=== PATIENT | male | born 1945 | race Caucasian/White ===

== ENCOUNTER 2016-07-17 17:00 | Inpatient (IN) | payer MEDICARE, OTHER ==
[2016-07-17] MEDS ORDERED: FLOMAX0.4 M1 PO (17:42)
[2016-07-17] MEDS ORDERED: DEXAMETHASONE4 M1 PO (17:43)
[2016-07-17] MEDS ORDERED: TENORMIN25 M1 PO (17:43)
[2016-07-17] MEDS ORDERED: PRINIVIL5 M1 PO (17:43)
[2016-07-17] MEDS ORDERED: LIPITOR20 M1 PO (17:44)
[2016-07-17] MEDS ORDERED: FLONASE ALLERG9.9 ML (17:44)
[2016-07-17] MEDS ORDERED: MULTIVITAMINS1 EAC6 PO (17:47)
[2016-07-17] MEDS ORDERED: NORCO 5-325 TA1 EACH PO (17:49)
[2016-07-17] MEDS ORDERED: ALEVE220 M4 PO (17:50)
[2016-07-17 18:42] LABS: HCT-HEMATOCRIT 31.2 % (36.0-53.5); HGB-HEMOGLOBIN 10.1 gm/dl (13.5-17.0); MCH (MEAN CORPUSCULAR HGB) 30.6 pg (28.0-32.0); MCHC MEAN CORPUSCULAR HGB CONC 32.4 % (32.0-36.0); MCV (MEAN CELL VOLUME) 94.5 fl (82.0-96.0); MEAN PLATELET VOLUME 8.8 cmc (9.4-12.4); NEUTROPHIL-AUTOMATED 38.3 tho/cmm (1.6-8.0); RED CELL DISTRIBUTION WIDTH 16.7 % (12.4-16.4)
[2016-07-17 18:44] LABS: BASO % 0.3 % (0-2); BASO ABSOLUTE COUNT 0.1 tho/cmm (0.0-0.2); IMMATURE GRANULOCYTES ABSOLUTE 2.65 tho/cmm (0-0.03); IMMATURE GRANULOCYTES PERCENT 6.4 % (0-0.3); LYMPH % 0.6 % (20-45); LYMPH ABSOLUTE COUNT 0.2 tho/cmm (0.8-4.5); MONO % 0.3 % (0-12); MONOCYTE ABSOLUTE COUNT 0.1 tho/cmm (0.0-1.2); NEUTROPHIL ABSOLUTE COUNT 38.3 tho/cmm (1.6-8.0); NEUTROPHILS % 92.4 % (40-80)
[2016-07-17 18:57] LABS: ALB/GLOB RATIO 0.8 (0.8-2.0); ALBUMIN 2.8 g/dl (3.5-5.0); ALKALINE PHOSPHATASE 62 U/L (33-138); ALT/SGPT 19 U/L (12-78); ANION GAP 12 mmol/L (0-20); AST/SGOT 18 U/L (10-40); BILIRUBIN,TOTAL 0.6 mg/dl (0.0-1.5); BLOOD UREA NITROGEN 32 mg/dl (6-24); CALCIUM 7.9 mg/dl (8.5-10.5); CARBON DIOXIDE-VENOUS 27 mmol/L (22-32); CHLORIDE 103 mmol/l (96-110); CREATININE 1.11 mg/dl (0.60-1.30); GLUCOSE 133 mg/dL (70-110); POTASSIUM 4.4 mmol/L (3.7-5.1); SODIUM 138 mmol/L (135-145); eGFR VALUE FOR BLACK 76 mL/Min
[2016-07-17 19:08] LABS: PLATELET COUNT 309 tho/cmm (150-450); WHITE BLOOD COUNT 41.8 tho/cmm (4.0-10.0)
[2016-07-18 05:25] LABS: HCT-HEMATOCRIT 28.1 % (36.0-53.5); MCH (MEAN CORPUSCULAR HGB) 30.3 pg (28.0-32.0); MCV (MEAN CELL VOLUME) 94.6 fl (82.0-96.0); MEAN PLATELET VOLUME 9.1 cmc (9.4-12.4); PLATELET COUNT 272 tho/cmm (150-450); RED BLOOD COUNT 2.97 mil/cmm (4.40-5.70); RED CELL DISTRIBUTION WIDTH 16.8 % (12.4-16.4); WHITE BLOOD COUNT 33.1 tho/cmm (4.0-10.0)
[2016-07-18 05:53] LABS: ALB/GLOB RATIO 0.7 (0.8-2.0); ALBUMIN 2.3 g/dl (3.5-5.0); ALKALINE PHOSPHATASE 67 U/L (33-138); ALT/SGPT 17 U/L (12-78); ANION GAP 9 mmol/L (0-20); AST/SGOT 14 U/L (10-40); BILIRUBIN,TOTAL 0.5 mg/dl (0.0-1.5); BLOOD UREA NITROGEN 30 mg/dl (6-24); CALCIUM 7.8 mg/dl (8.5-10.5); CARBON DIOXIDE-VENOUS 28 mmol/L (22-32); CHLORIDE 106 mmol/l (96-110); CREATININE 1.02 mg/dl (0.60-1.30); GLUCOSE 127 mg/dL (70-110); POTASSIUM 4.2 mmol/L (3.7-5.1); SODIUM 139 mmol/L (135-145); eGFR VALUE FOR BLACK 85 mL/Min
[2016-07-18 10:52] LABS: BAND % 15 % (0-20)
[2016-07-18 10:53] LABS: WBC MORPHOLOGY VACUOLES
[2016-07-18 13:24] LABS: URINE BILIRUBIN NEGATIVE (NEG); URINE BLOOD SMALL (NEG); URINE GLUCOSE (UA) NEGATIVE (NEG); URINE KETONE NEGATIVE (NEG); URINE LEUKOCYTE ESTERASE POSITIVE (NEG); URINE NITRITE NEGATIVE (NEG); URINE PROTEIN MODERATE (NEG); URINE SPECIFIC GRAVITY 1.015 (1.003-1.030)
[2016-07-18 13:25] LABS: URINE APPEARANCE CLEAR; URINE COLOR YELLOW
[2016-07-18 13:30] LABS: URINE EPITHELIAL CELLS 0 /[HPF] (0-10); URINE RBC RARE /[HPF] (0-5); URINE WBC 15-18 /[HPF] (0-5)
[2016-07-19 05:17] LABS: HCT-HEMATOCRIT 27.4 % (36.0-53.5); HGB-HEMOGLOBIN 8.8 gm/dl (13.5-17.0); MCH (MEAN CORPUSCULAR HGB) 30.2 pg (28.0-32.0); MCHC MEAN CORPUSCULAR HGB CONC 32.1 % (32.0-36.0); MCV (MEAN CELL VOLUME) 94.2 fl (82.0-96.0); MEAN PLATELET VOLUME 9.3 cmc (9.4-12.4); PLATELET COUNT 221 tho/cmm (150-450); RED BLOOD COUNT 2.91 mil/cmm (4.40-5.70); RED CELL DISTRIBUTION WIDTH 16.9 % (12.4-16.4); WHITE BLOOD COUNT 21.3 tho/cmm (4.0-10.0)
[2016-07-19 05:36] LABS: ANION GAP 11 mmol/L (0-20); BLOOD UREA NITROGEN 29 mg/dl (6-24); CALCIUM 7.9 mg/dl (8.5-10.5); CARBON DIOXIDE-VENOUS 26 mmol/L (22-32); CHLORIDE 105 mmol/l (96-110); CREATININE 0.93 mg/dl (0.60-1.30); GLUCOSE 102 mg/dL (70-110); POTASSIUM 3.9 mmol/L (3.7-5.1); SODIUM 138 mmol/L (135-145); eGFR VALUE FOR BLACK >90 mL/Min
[2016-07-19 05:44] LABS: C-REACTIVE PROTEIN 21.2 mg/dl (0-0.9); CREATINE PHOSPHOKINASE (CPK) 68 U/L (35-232)
[2016-07-19 08:50] LABS: BAND % 9 % (0-20); BAND ABSOLUTE COUNT 1.9 tho/cmm (0-2.0)
[2016-07-20 04:41] LABS: HCT-HEMATOCRIT 26.4 % (36.0-53.5); HGB-HEMOGLOBIN 8.4 gm/dl (13.5-17.0); MCH (MEAN CORPUSCULAR HGB) 29.9 pg (28.0-32.0); MCHC MEAN CORPUSCULAR HGB CONC 31.8 % (32.0-36.0); MEAN PLATELET VOLUME 9.5 cmc (9.4-12.4); NEUTROPHIL-AUTOMATED 5.8 tho/cmm (1.6-8.0); PLATELET COUNT 224 tho/cmm (150-450); RED BLOOD COUNT 2.81 mil/cmm (4.40-5.70)
[2016-07-20 04:46] LABS: BASO % 3.2 % (0-2); BASO ABSOLUTE COUNT 0.2 tho/cmm (0.0-0.2); EOS % 0.7 % (0-7); EOSINOPHIL ABSOLUTE COUNT 0.1 tho/cmm (0.0-0.7); IMMATURE GRANULOCYTES ABSOLUTE 0.81 tho/cmm (0-0.03); IMMATURE GRANULOCYTES PERCENT 11.1 % (0-0.3); LYMPH % 4.5 % (20-45); LYMPH ABSOLUTE COUNT 0.3 tho/cmm (0.8-4.5); MONOCYTE ABSOLUTE COUNT 0.1 tho/cmm (0.0-1.2); NEUTROPHIL ABSOLUTE COUNT 5.8 tho/cmm (1.6-8.0); NEUTROPHILS % 79.5 % (40-80); WHITE BLOOD COUNT 7.3 tho/cmm (4.0-10.0)
[2016-07-20 05:36] LABS: ANION GAP 9 mmol/L (0-20); BLOOD UREA NITROGEN 24 mg/dl (6-24); C-REACTIVE PROTEIN 18.4 mg/dl (0-0.9); CALCIUM 7.9 mg/dl (8.5-10.5); CARBON DIOXIDE-VENOUS 28 mmol/L (22-32); CHLORIDE 104 mmol/l (96-110); CREATININE 0.86 mg/dl (0.60-1.30); GLUCOSE 130 mg/dL (70-110); POTASSIUM 3.9 mmol/L (3.7-5.1); SODIUM 137 mmol/L (135-145); eGFR VALUE FOR BLACK >90 mL/Min
[2016-07-21 03:43] LABS: BASO % 0.3 % (0-2); EOS % 0.6 % (0-7); HCT-HEMATOCRIT 26.5 % (36.0-53.5); HGB-HEMOGLOBIN 8.5 gm/dl (13.5-17.0); IMMATURE GRANULOCYTES ABSOLUTE 0.08 tho/cmm (0-0.03); IMMATURE GRANULOCYTES PERCENT 1.1 % (0-0.3); LYMPH % 3.7 % (20-45); LYMPH ABSOLUTE COUNT 0.3 tho/cmm (0.8-4.5); MCH (MEAN CORPUSCULAR HGB) 29.9 pg (28.0-32.0); MCHC MEAN CORPUSCULAR HGB CONC 32.1 % (32.0-36.0); MCV (MEAN CELL VOLUME) 93.3 fl (82.0-96.0); MEAN PLATELET VOLUME 9.3 cmc (9.4-12.4); MONO % 5.5 % (0-12); MONOCYTE ABSOLUTE COUNT 0.4 tho/cmm (0.0-1.2); NEUTROPHIL ABSOLUTE COUNT 6.4 tho/cmm (1.6-8.0); NEUTROPHIL-AUTOMATED 6.4 tho/cmm (1.6-8.0); NEUTROPHILS % 88.8 % (40-80); PLATELET COUNT 243 tho/cmm (150-450); RED BLOOD COUNT 2.84 mil/cmm (4.40-5.70); RED CELL DISTRIBUTION WIDTH 16.7 % (12.4-16.4); WHITE BLOOD COUNT 7.2 tho/cmm (4.0-10.0)
[2016-07-21 04:11] LABS: ANION GAP 11 mmol/L (0-20); BLOOD UREA NITROGEN 17 mg/dl (6-24); C-REACTIVE PROTEIN 15.5 mg/dl (0-0.9); CALCIUM 7.8 mg/dl (8.5-10.5); CARBON DIOXIDE-VENOUS 26 mmol/L (22-32); CHLORIDE 103 mmol/l (96-110); CREATININE 0.79 mg/dl (0.60-1.30); GLUCOSE 114 mg/dL (70-110); POTASSIUM 3.8 mmol/L (3.7-5.1); SODIUM 136 mmol/L (135-145); eGFR VALUE FOR BLACK >90 mL/Min
[2016-07-21 07:23] LABS: WBC MORPHOLOGY DOHLE BODIES
[2016-07-22 05:57] LABS: HCT-HEMATOCRIT 30.1 % (36.0-53.5); HGB-HEMOGLOBIN 9.6 gm/dl (13.5-17.0); MCH (MEAN CORPUSCULAR HGB) 29.6 pg (28.0-32.0); MCHC MEAN CORPUSCULAR HGB CONC 31.9 % (32.0-36.0); MCV (MEAN CELL VOLUME) 92.9 fl (82.0-96.0); MEAN PLATELET VOLUME 9.3 cmc (9.4-12.4); NEUTROPHIL-AUTOMATED 10.9 tho/cmm (1.6-8.0); PLATELET COUNT 286 tho/cmm (150-450); RED BLOOD COUNT 3.24 mil/cmm (4.40-5.70); RED CELL DISTRIBUTION WIDTH 16.9 % (12.4-16.4)
[2016-07-22 06:06] LABS: WHITE BLOOD COUNT 12.9 tho/cmm (4.0-10.0)
[2016-07-22 06:16] LABS: ANION GAP 10 mmol/L (0-20); BLOOD UREA NITROGEN 15 mg/dl (6-24); C-REACTIVE PROTEIN 16.1 mg/dl (0-0.9); CALCIUM 8.3 mg/dl (8.5-10.5); CARBON DIOXIDE-VENOUS 27 mmol/L (22-32); CHLORIDE 106 mmol/l (96-110); CREATININE 0.85 mg/dl (0.60-1.30); GLUCOSE 107 mg/dL (70-110); POTASSIUM 3.7 mmol/L (3.7-5.1); SODIUM 139 mmol/L (135-145); eGFR VALUE FOR BLACK >90 mL/Min
[2016-07-22 06:22] LABS: CREATINE PHOSPHOKINASE (CPK) 34 U/L (35-232)
[2016-07-22 07:34] LABS: BAND % 19 % (0-20); BAND ABSOLUTE COUNT 2.5 tho/cmm (0-2.0); EOSINOPHIL % 1 % (0-7)
[2016-07-23 06:00] LABS: HCT-HEMATOCRIT 27.7 % (36.0-53.5); HGB-HEMOGLOBIN 8.8 gm/dl (13.5-17.0); MCH (MEAN CORPUSCULAR HGB) 29.8 pg (28.0-32.0); MCHC MEAN CORPUSCULAR HGB CONC 31.8 % (32.0-36.0); MCV (MEAN CELL VOLUME) 93.9 fl (82.0-96.0); MEAN PLATELET VOLUME 9.4 cmc (9.4-12.4); NEUTROPHIL-AUTOMATED 11.2 tho/cmm (1.6-8.0); PLATELET COUNT 286 tho/cmm (150-450); RED BLOOD COUNT 2.95 mil/cmm (4.40-5.70); WHITE BLOOD COUNT 13.2 tho/cmm (4.0-10.0)
[2016-07-23 06:03] LABS: BASO % 0.2 % (0-2); EOS % 0.4 % (0-7); EOSINOPHIL ABSOLUTE COUNT 0.1 tho/cmm (0.0-0.7); IMMATURE GRANULOCYTES ABSOLUTE 0.91 tho/cmm (0-0.03); IMMATURE GRANULOCYTES PERCENT 6.9 % (0-0.3); LYMPH % 3.6 % (20-45); LYMPH ABSOLUTE COUNT 0.5 tho/cmm (0.8-4.5); MONO % 4.2 % (0-12); MONOCYTE ABSOLUTE COUNT 0.6 tho/cmm (0.0-1.2); NEUTROPHIL ABSOLUTE COUNT 11.2 tho/cmm (1.6-8.0); NEUTROPHILS % 84.7 % (40-80)
[2016-07-23 06:16] LABS: ANION GAP 13 mmol/L (0-20); BLOOD UREA NITROGEN 16 mg/dl (6-24); CALCIUM 8.1 mg/dl (8.5-10.5); CARBON DIOXIDE-VENOUS 29 mmol/L (22-32); CHLORIDE 104 mmol/l (96-110); CREATININE 0.87 mg/dl (0.60-1.30); GLUCOSE 108 mg/dL (70-110); SODIUM 142 mmol/L (135-145); eGFR VALUE FOR BLACK >90 mL/Min
[2016-07-23] MEDS ORDERED: CLARITIN10 M8 PO (15:23)
[2016-07-23] MEDS ORDERED: CEFTRIAXON2000 MG/VI IV (15:24)
[2016-07-23] MEDS ORDERED: ACIDOPHILUS1 EAC3 PO (15:25)
[2016-07-23] MEDS ORDERED: MILK OF MAGNESIA PO (15:26)
[2016-07-23] MEDS ORDERED: SENNA CONCENTR8.6 M1 PO (15:27)
[2016-07-23] MEDS ORDERED: POLYETHYLENE G255 G1 PO (15:27)
[2016-07-23] MEDS ORDERED: ANTIFUNGAL30 G3 TP (15:28)
[2016-07-23] MEDS ORDERED: LASIX20 M1 PO (15:29)
[2016-07-23] MEDS ORDERED: POTASSIUM CHLO10 ME2 PO (15:30)
[2016-07-23] MEDS ORDERED: NORCO 5-325 TA1 EACH PO (15:30)
[2016-08-19] MEDS ORDERED: ASPIRIN81 M1 PO (09:39)
== END 2016-07-23 16:55 | DRG 872 ==
LOC: 5WF 17:00
PROVIDERS: Family Medicine; Internal Medicine Infectious Disease; ADMIT Internal Medicine Hematology & Oncology
PROC: 3E0F7GC Introduction of Other Therapeutic Substance into Respiratory Tract, Via Natural or Artificial Opening (ICD-10-PCS; principal; 2016-07-18)
DX: A40.1 Sepsis due to streptococcus, group B (principal); I95.9 Hypotension, unspecified; L03.313 Cellulitis of chest wall; E88.09 Other disorders of plasma-protein metabolism, not elsewhere classified; D64.81 Anemia due to antineoplastic chemotherapy; C61 Malignant neoplasm of prostate; B35.3 Tinea pedis; B35.4 Tinea corporis; D72.829 Elevated white blood cell count, unspecified; E11.9 Type 2 diabetes mellitus without complications; I25.10 Atherosclerotic heart disease of native coronary artery without angina pectoris; K59.00 Constipation, unspecified; M60.9 Myositis, unspecified; R60.9 Edema, unspecified; R79.82 Elevated C-reactive protein (CRP)
CPT/HCPCS: G8978-GP-CJ; G8979-GP-CI; J0696; J0878; J1650; J1940; J2185; J7040; J7050

== ENCOUNTER 2016-07-29 17:21 | Inpatient (IN) | payer MEDICARE, OTHER ==
[~2016-07-29 17:21] MED LIST: ACIDOPHILUS1 EAC3 PO; ALEVE220 M4 PO; ANTIFUNGAL30 G3 TP; CEFTRIAXON2000 MG/VI IV; CLARITIN10 M8 PO; DEXAMETHASONE4 M1 PO; FLOMAX0.4 M1 PO; FLONASE ALLERG9.9 ML; LASIX20 M1 PO; LIPITOR20 M1 PO; MILK OF MAGNESIA PO; MULTIVITAMINS1 EAC6 PO; NORCO 5-325 TA1 EACH PO; POLYETHYLENE G255 G1 PO; POTASSIUM CHLO10 ME2 PO; PRINIVIL5 M1 PO; SENNA CONCENTR8.6 M1 PO; TENORMIN25 M1 PO
[2016-07-30 02:48] LABS: URINE BILIRUBIN NEGATIVE (NEG); URINE BLOOD NEGATIVE (NEG); URINE GLUCOSE (UA) NEGATIVE (NEG); URINE KETONE NEGATIVE (NEG); URINE LEUKOCYTE ESTERASE NEGATIVE (NEG); URINE NITRITE NEGATIVE (NEG); URINE PROTEIN NEGATIVE (NEG); URINE SPECIFIC GRAVITY 1.005 (1.003-1.030)
[2016-07-30 03:04] LABS: URINE APPEARANCE CLEAR; URINE COLOR PALE YELLOW
[2016-07-30 05:26] LABS: BASO % 0.5 % (0-2); EOS % 0.5 % (0-7); HCT-HEMATOCRIT 27.1 % (36.0-53.5); HGB-HEMOGLOBIN 8.4 gm/dl (13.5-17.0); IMMATURE GRANULOCYTES ABSOLUTE 0.05 tho/cmm (0-0.03); IMMATURE GRANULOCYTES PERCENT 0.6 % (0-0.3); LYMPH % 5.7 % (20-45); LYMPH ABSOLUTE COUNT 0.5 tho/cmm (0.8-4.5); MCH (MEAN CORPUSCULAR HGB) 29.1 pg (28.0-32.0); MCV (MEAN CELL VOLUME) 93.8 fl (82.0-96.0); MEAN PLATELET VOLUME 8.8 cmc (9.4-12.4); MONO % 10.7 % (0-12); MONOCYTE ABSOLUTE COUNT 0.9 tho/cmm (0.0-1.2); NEUTROPHIL ABSOLUTE COUNT 7.1 tho/cmm (1.6-8.0); NEUTROPHIL-AUTOMATED 7.1 tho/cmm (1.6-8.0); PLATELET COUNT 359 tho/cmm (150-450); RED BLOOD COUNT 2.89 mil/cmm (4.40-5.70); WHITE BLOOD COUNT 8.7 tho/cmm (4.0-10.0)
[2016-07-30 05:50] LABS: ALB/GLOB RATIO 0.7 (0.8-2.0); ALBUMIN 2.2 g/dl (3.5-5.0); ALKALINE PHOSPHATASE 56 U/L (33-138); ALT/SGPT 20 U/L (12-78); ANION GAP 10 mmol/L (0-20); AST/SGOT 16 U/L (10-40); BILIRUBIN,TOTAL 0.2 mg/dl (0.0-1.5); BLOOD UREA NITROGEN 12 mg/dl (6-24); CALCIUM 8.2 mg/dl (8.5-10.5); CARBON DIOXIDE-VENOUS 30 mmol/L (22-32); CHLORIDE 104 mmol/l (96-110); CREATININE 0.87 mg/dl (0.60-1.30); GLUCOSE 121 mg/dL (70-110); POTASSIUM 4.2 mmol/L (3.7-5.1); SODIUM 140 mmol/L (135-145); eGFR VALUE FOR BLACK >90 mL/Min
[2016-07-30 10:22] LABS: INR 1.2 INR (0.9-1.1); PROTHROMBIN TIME 13.5 SECONDS (9.0-13.6)
[2016-07-31 03:04] LABS: BASO % 0.1 % (0-2); HCT-HEMATOCRIT 28.6 % (36.0-53.5); HGB-HEMOGLOBIN 8.9 gm/dl (13.5-17.0); IMMATURE GRANULOCYTES ABSOLUTE 0.05 tho/cmm (0-0.03); IMMATURE GRANULOCYTES PERCENT 0.4 % (0-0.3); LYMPH % 2.6 % (20-45); LYMPH ABSOLUTE COUNT 0.4 tho/cmm (0.8-4.5); MCH (MEAN CORPUSCULAR HGB) 29.2 pg (28.0-32.0); MCHC MEAN CORPUSCULAR HGB CONC 31.1 % (32.0-36.0); MCV (MEAN CELL VOLUME) 93.8 fl (82.0-96.0); MEAN PLATELET VOLUME 8.6 cmc (9.4-12.4); MONOCYTE ABSOLUTE COUNT 0.1 tho/cmm (0.0-1.2); NEUTROPHIL ABSOLUTE COUNT 13.1 tho/cmm (1.6-8.0); NEUTROPHIL-AUTOMATED 13.1 tho/cmm (1.6-8.0); NEUTROPHILS % 95.9 % (40-80); PLATELET COUNT 366 tho/cmm (150-450); RED BLOOD COUNT 3.05 mil/cmm (4.40-5.70); RED CELL DISTRIBUTION WIDTH 16.9 % (12.4-16.4)
[2016-07-31 03:14] LABS: ANION GAP 10 mmol/L (0-20); CALCIUM 8.2 mg/dl (8.5-10.5); CARBON DIOXIDE-VENOUS 30 mmol/L (22-32); CHLORIDE 106 mmol/l (96-110); CREATININE 0.87 mg/dl (0.60-1.30); GLUCOSE 150 mg/dL (70-110); POTASSIUM 4.8 mmol/L (3.7-5.1); SODIUM 141 mmol/L (135-145); eGFR VALUE FOR BLACK >90 mL/Min
[2016-07-31 03:28] LABS: WHITE BLOOD COUNT 13.7 tho/cmm (4.0-10.0)
[2016-07-31 04:21] LABS: BLOOD UREA NITROGEN 14 mg/dl (6-24)
[2016-07-31 13:33] LABS: INR 1.2 INR (0.9-1.1); PROTHROMBIN TIME 13.8 SECONDS (9.0-13.6)
[2016-08-01 04:37] LABS: C-REACTIVE PROTEIN 4.2 mg/dl (0-0.9)
[2016-08-02 06:32] LABS: BASO % 0.8 % (0-2); BASO ABSOLUTE COUNT 0.1 tho/cmm (0.0-0.2); EOS % 0.3 % (0-7); HCT-HEMATOCRIT 28.5 % (36.0-53.5); HGB-HEMOGLOBIN 8.8 gm/dl (13.5-17.0); IMMATURE GRANULOCYTES ABSOLUTE 0.01 tho/cmm (0-0.03); IMMATURE GRANULOCYTES PERCENT 0.2 % (0-0.3); LYMPH % 9.4 % (20-45); LYMPH ABSOLUTE COUNT 0.6 tho/cmm (0.8-4.5); MCH (MEAN CORPUSCULAR HGB) 28.9 pg (28.0-32.0); MCHC MEAN CORPUSCULAR HGB CONC 30.9 % (32.0-36.0); MCV (MEAN CELL VOLUME) 93.4 fl (82.0-96.0); MEAN PLATELET VOLUME 8.4 cmc (9.4-12.4); MONO % 8.9 % (0-12); MONOCYTE ABSOLUTE COUNT 0.6 tho/cmm (0.0-1.2); NEUTROPHIL ABSOLUTE COUNT 5.1 tho/cmm (1.6-8.0); NEUTROPHIL-AUTOMATED 5.1 tho/cmm (1.6-8.0); NEUTROPHILS % 80.4 % (40-80); PLATELET COUNT 377 tho/cmm (150-450); RED BLOOD COUNT 3.05 mil/cmm (4.40-5.70); RED CELL DISTRIBUTION WIDTH 17.1 % (12.4-16.4)
[2016-08-02 06:49] LABS: ANION GAP 10 mmol/L (0-20); BLOOD UREA NITROGEN 22 mg/dl (6-24); C-REACTIVE PROTEIN 2.1 mg/dl (0-0.9); CALCIUM 8.1 mg/dl (8.5-10.5); CARBON DIOXIDE-VENOUS 31 mmol/L (22-32); CHLORIDE 104 mmol/l (96-110); CREATININE 0.86 mg/dl (0.60-1.30); GLUCOSE 91 mg/dL (70-110); SODIUM 141 mmol/L (135-145); eGFR VALUE FOR BLACK >90 mL/Min
[2016-08-02 06:56] LABS: WHITE BLOOD COUNT 6.3 tho/cmm (4.0-10.0)
[2016-08-02] MEDS ORDERED: TYLENOL325 M2 PO (16:24)
[2016-08-02] MEDS ORDERED: MAG-AL PLUS XS30 M1 PO (16:29)
[2016-08-02] MEDS ORDERED: LAMISIL AT (16:42)
[2016-08-19] MEDS ORDERED: ASPIRIN81 M1 PO (09:39)
== END 2016-08-02 19:27 | DRG 603 ==
LOC: 5WF 17:21 → ORW 07-30 20:55 → 5WF 07-30 22:45
PROVIDERS: Internal Medicine Infectious Disease; Radiology Diagnostic Radiology; Surgery; ADMIT Family Medicine
PROC: 0J9C3ZZ Drainage of Pelvic Region Subcutaneous Tissue and Fascia, Percutaneous Approach (ICD-10-PCS; principal; 2016-07-30)
PROC: 0J9C30Z Drainage of Pelvic Region Subcutaneous Tissue and Fascia with Drainage Device, Percutaneous Approach (ICD-10-PCS; 2016-07-31)
DX: L02.214 Cutaneous abscess of groin (principal); C61 Malignant neoplasm of prostate; E66.9 Obesity, unspecified; E78.5 Hyperlipidemia, unspecified; B95.1 Streptococcus, group B, as the cause of diseases classified elsewhere; M60.851 Other myositis, right thigh; E78.00 Pure hypercholesterolemia, unspecified; R60.9 Edema, unspecified; I25.10 Atherosclerotic heart disease of native coronary artery without angina pectoris; J31.0 Chronic rhinitis; Z87.891 Personal history of nicotine dependence; Z68.35 Body mass index [BMI] 35.0-35.9, adult
CPT/HCPCS: C1729; J0878; J1335; J1940; J2185; J2250; J3010; J3370; J7050; J7999; Q9967